=== PATIENT | female | born 1955 | race Two or more races ===

== ENCOUNTER → 2021-06-23 | Outpatient (CLI) | payer OTHER ==
--- NOTE | 2021-06-24 08:52 | KCIC ---
3 views left ankle 06/23/2021 3:41 PM Indication: Reason: ACUTE LEFT ANKLE PAIN, SWELLING, NO INJURY Comparison: None Findings: No fracture or dislocation is identified. There is arthritic change at the tibiotalar joint , particularly medially where there is joint space narrowing and subchondral sclerosis. Similar jones es at subtalar joint noted. There is medial and lateral soft tissue edema. No lytic changes or eviden ce of chronic osteomyelitis is appreciated. IMPRESSION: Severe arthritic changes of the left ankle without radiographic evidence of acute osseous abnormality Electronically signed by: Clayton Kramer MD (06/24/2021 8:50 AM) [id number]
== END ==
LOC: KCIC 15:35
PROVIDERS: ATTEND Family Medicine
DX: R60.0 Localized edema (principal); M13.872 Other specified arthritis, left ankle and foot; M25.872 Other specified joint disorders, left ankle and foot; M25.572 Pain in left ankle and joints of left foot
CPT/HCPCS: 73610